=== PATIENT | female | born 1955 | race Caucasian/White ===

== ENCOUNTER 2021-03-11 08:28 | Emergency (ER) | payer OTHER, MEDICAID ==
[~2021-03-11] VITALS: Ht 165.1 cm; Wt 63.5 kg
[2021-03-11 10:42] VITALS: BP 134/80
== END 2021-03-11 10:54 | disposition home or self-care (01) ==
LOC: ER 08:28
DX: I10 Essential (primary) hypertension (principal); F17.210 Nicotine dependence, cigarettes, uncomplicated; Z76.0 Encounter for issue of repeat prescription; Z88.5 Allergy status to narcotic agent; Z88.8 Allergy status to other drugs, medicaments and biological substances